=== PATIENT | male | born 1965 | race Caucasian/White ===

== ENCOUNTER 2021-01-19 07:33 | Observation (INO) ==
--- NOTE | 2021-01-02 13:30 | PAT Medication Instructions ---
Medication Instructions Date of Service January 02, 2021 Home Medications aspirin [Aspir-81] 81 mg PO QAM baclofen 10 mg PO BID cholecalciferol (vitamin D3) [Vitamin D3] 125 mcg PO QAM diclofenac sodium 50 mg PO BID metformin 500 mg PO BID multivitamin 1 tab PO QAM omega 4-bki-osi-fish oil [[place] 3 Fish Oil] 1 cap PO QAM ASK your surgeon for instructions diclofenac sodium 50 mg PO BID ASK your prescriber and surgeon aspirin [Aspir-81] 81 mg PO QAM STOP taking 2 weeks before surgery (or as soon as possible if surgery is within 2 weeks) omega 5-dvf-hdi-fish oil [[place] 3 Fish Oil] 1 cap PO QAM DO NOT take the morning of surgery baclofen 10 mg PO BID cholecalciferol (vitamin D3) [Vitamin D3] 125 mcg PO QAM metformin 500 mg PO BID multivitamin 1 tab PO QAM Take evening before surgery baclofen 10 mg PO BID metformin 500 mg PO BID Other Notes If you have any questions please call us at [phone] or [phone] or [phone] or [phone]
--- NOTE | 2021-01-03 12:07 | Anesthesiology Consultation ---
Date of Service January 03, 2021 Assessment & Plan (1) Encounter for pre-operative examination: - Per assessment on 01/03: Travel screen negative. No known COVID-19 positive contacts or current COVID-19 related symptoms. Surgeon arranging preop COVID testing (scheduled 01/10; [facility]). Awaiting results. - Check BSG AM DOS - ASA instructions per surgeon/prescriber Chart Review Chart Review: Acceptable Risk for Surgery and Patient seen in Pre Admission Testing Teaching & Discussion Pre-Anesthesia Teaching/Discussion Notes: Instructed NPO after midnight before surgery,except medications with 15 cc of water. Medication instructions provided according to the PAT guidelines. History Surgery Operation Date: 01/17/21 12:05 Proposed Procedures p C5-C7 Anterior Cervical Discectomy and Fusion, C6 Corpectomy, Spinal Cord Monitoring - Jordin Banda DO Height/Weight Height: 6 ft 4 in Weight: 110.3 kg Allergies Allergy/AdvReac Type Severity Reaction Status Date / Time No Known Allergies Allergy Verified 12/26/20 09:48 Medications Home Medications Medication Instructions Recorded Confirmed Last Taken aspirin [Aspir-81] 81 mg PO QAM 12/26/20 12/26/20 Unknown baclofen 10 mg PO BID 12/26/20 12/26/20 Unknown cholecalciferol (vitamin D3) 125 mcg PO QAM 12/26/20 12/26/20 Unknown [Vitamin D3] diclofenac sodium 50 mg PO BID 12/26/20 12/26/20 Unknown metformin 500 mg PO BID 12/26/20 12/26/20 Unknown multivitamin 1 tab PO QAM 12/26/20 12/26/20 Unknown omega 6-hzz-bvx-fish oil [[place] 3 1 cap PO QAM 12/26/20 12/26/20 Unknown Fish Oil] Past Medical History Medical History Arthritis Chronic back pain Neck > B/L shoulder, LUE radiation Diabetes mellitus, type 2 NIDDM Migraine hx Exercise / Class Metabolic Activity II 4-5 Yardwork/Stairs/Walk up hill Past Family History Family History Grandfather (Paternal) Family history of diabetes mellitus Past Surgical History Surgical History History of arthroscopy Left knee meniscus repair/mc's cyst History of arthroscopy Right knee meniscus repair History of colonoscopy Past Anesthesia History No Hx of Anesthesia Complications and No Family Hx of Anesthesia Complications History of PONV No Hx of PONV and No Hx of Motion Sickness STOP BANG Total 3 Social History Smoking Status: Current every day smoker tobacco type: cigarettes Smoking cigarettes per day: 15-20 cigs/day x 20+ years Do You Dip or Chew Tobacco: No Hx Alcohol Use: Yes Alcohol type: wine and hard liquor alcohol intake frequency: a few times a month Hx Substance Use: No Review of Systems No snoring. Patient denies chest pain, shortness of breath, dyspnea on exertion, fever, chills, cough, wheezing, palpitations. Physical Exam Vital Signs VITALS BP 136/89 P 83 TEMP 98.4 SP02 95%RA RESP 16 PHYSICAL Significantly decreased cervical extension 2/2 cervicalgia Full TMJ range of motion. TMD 3 finger breaths Mallampati Score 3 Dentition: intact, + 2 crowns (upper front) Lungs: clear throughout to auscultation Cardiac: regular rate and rhythm, no murmurs noted Spine: normal Carotid arteries: negative bruit Extremities: no edema Testing Laboratory Results 01/03/21 12:26 01/03/21 12:26 PT 10.3 Seconds (9.0-12.0) 01/03/21 12:26 INR 1.0 (0.9-1.1) 01/03/21 12:26 APTT 29.3 Seconds (21.0-31.0) 01/03/21 12:26 Urine Color Yellow 01/03/21 12:26 Urine Appearance Clear (Clear) 01/03/21 12:26 Urine pH 5.5 (4.5-7.5) 01/03/21 12:26 Ur Specific [place] 1.016 (1.000-1.030) 01/03/21 12:26 Urine Protein Trace (Negative) H 01/03/21 12:26 Urine Glucose (UA) Negative (Negative) 01/03/21 12:26 Urine Ketones Negative (Negative) 01/03/21 12:26 Urine Nitrite Negative (Negative) 01/03/21 12:26 Ur Leukocyte Esterase 2+ (Negative) H 01/03/21 12:26 Urine WBC (Auto) >30 /hpf (0-5) H 01/03/21 12:26 Urine RBC (Auto) 0-4 /hpf (0-4) 01/03/21 12:26 U Hyaline Cast (Auto) 1-5 /lpf (0-5) 01/03/21 12:26 U Epithel Cells (Auto) 10-20 /lpf (0-5) H 01/03/21 12:26 Urine Bacteria (Auto) 1+ (Negative) H 01/03/21 12:26 Blood Type O Negative 01/03/21 12:26 Antibody Screen NEGATIVE 01/03/21 12:26 Surgeon's office made aware of abnormal UA* Electrocardiogram Date: 01/03/21 Findings: + NSR @ (70) Chest X-Ray Date: 01/03/21 FINDINGS: The heart is normal in size. No pleural effusions. No pneumothorax. The lungs are clear. Faint nodular density at the left lung base is consistent with a nipple shadow. IMPRESSION: No acute process.
--- NOTE | 2021-01-03 13:01 | XRay Report ---
XR chest Pre-admission PA/Lat HISTORY: Preop. COMPARISON: None. FINDINGS: The heart is normal in size. No pleural effusions. No pneumothorax. The lungs are clear. Fa int nodular density at the left lung base is consistent with a nipple shadow. IMPRESSION: No acute process. ACT 112: Negative or not required by law. Electronically signed by: Jimmy Lofton M.D. 01/03/2021 12:59 PM
[2021-01-03 13:46] LABS: Basophils # (auto) 0.02 K/uL (0-0.2); Basophils % (auto) 0.3 %; Eosinophils # (auto) 0.24 K/uL (0-0.5); Eosinophils % (auto) 3.1 %; Hematocrit (blood only) 48.2 % (42-52); Hemoglobin 16.6 g/dL (14.0-18.0); Immature Granulocytes # (auto) 0.01 K/uL (0.00-0.02); Immature Granulocytes % (auto) 0.1 %; Lymphocytes # (auto) 2.32 K/uL (1.2-3.4); Lymphocytes % (auto) 29.7 %; Mean Corpuscular Hemoglobin 31.1 pg (25-34); Mean Corpuscular Hgb Conc 34.4 g/dL (32-36); Mean Corpuscular Volume 90.4 fL (80-100); Mean Platelet Volume 9.4 fL (7.4-10.4); Monocytes # (auto) 0.59 K/uL (0.11-0.59); Monocytes % (auto) 7.6 %; Neutrophils # (auto) 4.63 K/uL (1.4-6.5); Neutrophils % (auto) 59.2 %; Platelet Count 211 K/uL (130-400); RDW Coefficient of Variation 13.3 % (11.5-14.5); RDW Standard Deviation 43.9 fL (36.4-46.3); Red Blood Count 5.33 M/uL (4.7-6.1); White Blood Count 7.81 K/uL (4.8-10.8)
[2021-01-03 14:03] LABS: Partial Thromboplastin Ratio 1.1; Partial Thromboplastin Time 29.3 Seconds (21.0-31.0); Prothrombin Time 10.3 Seconds (9.0-12.0)
[2021-01-03 14:04] LABS: Appearance Urine Clear (Clear); Bacteria Urine Automated 1+ (Negative); Bilirubin Urine Negative (Negative); Blood Urine Negative (Negative); Color Urine Yellow; Glucose Urine UA Negative (Negative); Ketones Urine Negative (Negative); Leukocyte Esterase Urine 2+ (Negative); Nitrite Urine Negative (Negative); Protein Urine Trace (Negative); RBC Urine Automated 0-4 /hpf (0-4); Specific Gravity Urine 1.016 (1.000-1.030); Urobilinogen Urine Negative (Negative); WBC Urine Automated >30 /hpf (0-5); pH Urine 5.5 (4.5-7.5)
[2021-01-03 14:10] LABS: BUN Creatinine Ratio 18.9 (10-20); Calcium 9.3 mg/dl (8.5-10.1); Creatinine Clr Calc Pharmacy 105.4 ml/min; Est GFR (African American) 88.7; Est GFR (Non-African American) 76.5
--- NOTE | 2021-01-03 16:28 | Electrocardiogram Report ---
Test Reason : Blood Pressure : / mmHG Vent. Rate : 070 BPM Atrial Rate : 070 BPM P-R Int : 144 ms QRS Dur : 106 ms QT Int : 394 ms P-R-T Axes : 066 054 075 degrees QTc Int : 425 ms Normal sinus rhythm Normal ECG No previous ECGs available Confirmed by Cole Thomas ([id number]) on 01/03/2021 4:27:57 PM Referred By: Jordin Banda Confirmed By:Cole Thomas
[2021-01-05 07:36] LABS: Estimated Average Glucose 117 mg/dl; Hemoglobin A1C 5.7 % (4.5-5.6)
[~2021-01-19 07:33] MED LIST: ACETAMINOPHEN 500 MG TAB PO SCH; CeleBREX 200 MG CAP PO SCH; GABAPENTIN 900 MG DOSE PO SCH; LR 15ML/HR IV SCH; ceFAZolin 2000MG 2,000 MG/15 ML SYR IV SCH
[2021-01-19] MEDS ORDERED: fentaNYL citrate 100 MCG/2 ML VIAL ONE ×2 (08:28→11:38)
[2021-01-19] MEDS ORDERED: MIDAZOLAM HCL 1 MG/ML 2ML VIAL ONE (08:28)
[2021-01-19 09:03] LABS: Influenza A virus by PCR Negative (Neg); Influenza B virus by PCR Negative (Neg); RSV by PCR Negative (Neg); SARS CoV2 RNA(COVID-19) InHosp NEGATIVE (Negative)
--- NOTE | 2021-01-19 09:14 | History & Physical Bridge Note ---
Date of Service January 19, 2021 History & Physical Bridge Note I have examined the patient, reviewed the History & Physical and in the interval since the performance of the History & Physical I have noted the following changes of clinical significance: no changes noted
[2021-01-19] MEDS ORDERED: BACITRACIN INJ 50,000 UNIT VIAL ONE (09:21)
--- NOTE | 2021-01-19 09:23 | History & Physical Report ---
Date of Service January 19, 2021 Assessment & Plan (1) Herniation of cervical intervertebral disc with radiculopathy: Admission and Anticipated Discharge Date Admission Date: C5-C7 anterior cervical discectomy and fusion, possible C6 corpectomy with globus coalition History of Present Illness Chief Complaint: Neck and arm pain Primary Care Provider: Navi Azul This is a 55-year-old male who presents with chronic persistent neck and arm pain after failing course of nonoperative care is here for surgical invention. Allergies Allergy/AdvReac Type Severity Reaction Status Date / Time No Known Allergies Allergy Verified 01/19/21 08:19 Home Medications Medication Instructions Recorded Confirmed Type aspirin [Aspir-81] 81 mg PO QAM 12/26/20 01/19/21 History baclofen 10 mg PO BID 12/26/20 01/19/21 History cholecalciferol (vitamin D3) 125 mcg PO QAM 12/26/20 01/19/21 History [Vitamin D3] diclofenac sodium 50 mg PO BID 12/26/20 01/19/21 History metformin 500 mg PO BID 12/26/20 01/19/21 History multivitamin 1 tab PO QAM 12/26/20 01/19/21 History omega 0-xpq-wth-fish oil [[place] 3 1 cap PO QAM 12/26/20 01/19/21 History Fish Oil] Past Med/Surg History Medical History Arthritis Chronic back pain Neck > B/L shoulder, LUE radiation Diabetes mellitus, type 2 NIDDM Migraine hx Surgical History History of arthroscopy Left knee meniscus repair/mc's cyst History of arthroscopy Right knee meniscus repair History of colonoscopy Family History Grandfather (Paternal) Family history of diabetes mellitus Social History Smoking Status: Current every day smoker Cigarettes Per Day: 15-20 cigs/day x 20+ years; Second Hand Exposure: Yes (FATHER SMOKED/SPOUSE SMOKES); Do You Dip or Chew Tobacco: No; Hx Alcohol Use: Yes Alcohol type: wine and hard liquor Hx Substance Use: No Preferred Language: Chinese Communication Ability: Effective Field Application Engineer Required: No Beliefs That Will Affect Care: None Current Living Situation: Spouse Other Information That Helps Us Care for You: No Feels Safe at Home: Yes Safety Concerns: Feels Safe At This Time Assistive Devices: Glasses Physical Exam Physical Exam: Patient is alert and oriented Heart regular in rhythm Lungs clear to auscultation Results & Data ([facility]) Vital Signs (Past 12 Hours) Vital Signs Temp Pulse Resp BP Pulse Ox 01/19/21 08:21 37.1 C 84 18 144/98 H 98
[2021-01-19] MEDS ORDERED: HYDROmorphone INJ 2 MG/ML SYR/VIAL IV PRN (09:25)
[2021-01-19] MEDS ORDERED: fentaNYL citrate 100 MCG/2 ML VIAL IV PRN (09:25)
[2021-01-19] MEDS ORDERED: PROMETHAZINE HCL 12.5 MG in SODIUM CHLORIDE 0.9% 50 ML IV PRN ×2 (09:25→13:18)
[2021-01-19] MEDS ORDERED: ONDANSETRON INJ 2 MG/ML 2 ML VIAL IV PRN ×2 (09:25→13:18)
[2021-01-19] MEDS ORDERED: METOCLOPRAMIDE HCL INJ 5 MG/ML 2 ML VIAL IV PRN ×2 (09:25→13:18)
[2021-01-19] MEDS ORDERED: ATROPINE SULFATE 0.1 MG/ML 10ML SYR IV PRN (09:25)
[2021-01-19] MEDS ORDERED: ePHEDrine sulfate 50 MG/ML AMP IV PRN (09:25)
[2021-01-19] MEDS ORDERED: PROPOFOL IV EMULSION 10 MG/ML 20 ML VIAL IV ONE (10:14)
[2021-01-19] MEDS ORDERED: SUCCINYLCHOLINE CHLORIDE 20 MG/ML 10 ML VIAL IV ONE (10:14)
[2021-01-19] MEDS ORDERED: LIDOCAINE HCL 2% 2 ML VIAL/AMP(20MG/ML) INFIL ONE (10:14)
[2021-01-19] MEDS ORDERED: DEXAMETHASONE SOD INJ 4 MG/ML VIAL ONE (10:14)
[2021-01-19] MEDS ORDERED: ROCURONIUM BROMIDE 10 MG/ML 5 ML VIAL IV ONE (10:14)
[2021-01-19] MEDS ORDERED: ONDANSETRON INJ 2 MG/ML 2 ML VIAL ONE (10:14)
[2021-01-19] MEDS ORDERED: GLYCOPYRROLATE 0.2 MG/ML VIAL ONE (10:15)
[2021-01-19] MEDS ORDERED: NEOSTIGMINE METHYLSULFATE 1 MG/ML 10ML VIAL ONE (10:15)
[2021-01-19] MEDS ORDERED: FLOSEAL HEMOSTATIC MATRIX 10ML TOP ONE (10:18)
[2021-01-19] MEDS ORDERED: PHENYLEPHRINE 100MCG/ML 5ML SYR ONE (10:29)
--- NOTE | 2021-01-19 11:40 | Operative Report ---
Post Operative Report Pre & Post Diagnosis Operation Date: 01/17/21 07:45 <No data on this case meets the specified criteria> Operation Date: 01/19/21 09:45 Pre-Op Diagnosis: Cervical spinal stenosis with myeloradiculopathy Post-Op Diagnosis: Same I identified the patient and participated in the time-out.: Yes Procedure Operation Date: 01/17/21 07:45 <No data on this case meets the specified criteria> Operation Date: 01/19/21 09:45 Actual Procedures #1 anterior cervical corpectomy C6 with bilateral foraminotomies. #2 anterior cervical arthrodesis C5-C7. #3 placement of 25 mm peek cage C5-C7. #4 placement locally harvested morselized autograft combined with I factor in the interbody cage. #5 application of 5 complete and screws from C5-C7. Surgeon Jordin Banda, DO Shipping And Receiving Associate Flower Leigh Estimated Blood Loss 25 Findings See Below Patient demonstrated severe posterior bony spurs off of the endplates of C5-6 and C6-C7 requiring removal extensive amount of the bony endplate and vertebral body. This was done in order to adequately decompress the canal and neural foramen. Subsequently elected to perform a complete corpectomy in order to have established solid endplates at either end of the construct and avoid collapse of the vertebral bodies upon the interbody cage. Specimens None Indications This is a 55-year-old male who presents with above-mentioned diagnosis after failing course of nonoperative care is here for the above-mentioned seizure. Description of Procedure Patient was met with identified informed consent obtained. Patient was taken to the operative suite underwent intubation placed in a supine position on the Pedro table with head Manley head waiter/waitress banquet. All bony prominences well-padded eyes inspected to ensure no external pressure placed upon the. This point the anterior cervical spine was prepped and draped in a sterile fashion. The assistance of fluoroscopy identified the C6 vertebral body and a transverse incision was placed on the right anterior aspect of the cervical spinal lines region. Sharp dissection with assistance of bipolar electrocautery performed down to and exposing the anterior cervical spine at C5-6 and C6-C7. Self- retaining retractors placed. I performed a complete discectomy of C5-6 out to the uncovertebral's bilaterally. [place] distracting pins were utilized to assist in visualization. I removed all posterior annular fibers longitudinal ligament and performed bilateral foraminotomies. In order to adequately decompress the foramen in the canal I burred the superior endplate of C6 and to do this extensively accessed the spurs. This did compromise the integrity of the vertebral body. Based on this I then approached the C6-C7 level placed the [place] distractor pins and C7 to distract across the remaining entire C6 vertebral body. A complete discectomy of C6-C7 was then performed to the uncovertebral's bilaterally. Again marked spurring was noted posteriorly and at this region as well and required excess removal of vertebral body. Subsequently removed the entire vertebral body of C6 to complete a corpectomy and completely decompress the canal and neural foramen. The endplates were then burred to subc ortical bleeding bone and a 25 mm peek cage filled locally harvested morselized autograft and I factor tapped in position. In order to stabilize this lengthy construct I elected to place a plate from C5-C7. This was done so with fluoroscopy. The incision was then copiously irrigated explored to ensure no damage to surrounding structures remaining bleeding. 10 round JEREMY drain inserted. Incision was then closed with 2 Vicryl in the fascia 4 Monocryl for final skin closure. Steri-Strip sterile dressings placed. Patient waken taken to PACU stable condition. Please note spinal cord monitoring was utilized at the procedure no changes noted. Lastly Flower Leigh was present at the entire surgery involved the patient positioning complex portions of the surgery and final skin closure. I attest to the content of the Intraoperative Record and any orders documented therein. Any exceptions are noted below.
--- NOTE | 2021-01-19 12:34 | Fluoroscopy Report ---
FL cervical 2-3V HISTORY: 55 years-old Male ACDF C5-C6/ C6-C7 / CORPECTOMY C6 chronic neck pain COMPARISON: None TECHNIQUE: 3 spot fluoroscopic images of the cervical spine were obtained utilizing 12.4 seconds fluo roscopy time FINDINGS: Anterior plate and screw fusion hardware is noted at what appears to be the C5-C6 levels with C6 peri ectomy. The visualized hardware appears intact. Endotracheal tube. Radiopaque surgical sponge project s within the soft tissues anterior to the hardware. IMPRESSION: Fluoroscopic assistance as above. ACT 112: Negative or not required by law. The above report was generated using voice recognition software. It may contain grammatical, syntax o r spelling errors. Electronically signed by: Isauro Joiner M.D. 01/19/2021 12:33 PM
--- NOTE | 2021-01-19 12:49 | Anesthesiology Progress Note ---
Date of Service January 19, 2021 Anesthesia Post Procedure Vital Signs Vital Signs: Temp Pulse Pulse Resp BP Pulse Ox 01/19/21 12:45 36.4 C L 62 12 133/81 96 01/19/21 12:35 36.4 C L 60 12 128/86 97 01/19/21 12:25 60 17 130/83 96 01/19/21 12:15 64 17 132/86 95 01/19/21 12:05 65 16 142/88 H 95 01/19/21 11:55 80 23 143/87 H 93 01/19/21 11:48 36.2 C L 68 16 146/84 H 95 01/19/21 08:21 37.1 C 84 18 144/98 H 98 Pain Intensity Neck: Pain Intensity: 0 Transfer of Care Handoff Completed per policy Notes Mental Status: alert / awake / arousable and participated in evaluation Patient Amnestic to Procedure: Yes Nausea / Vomiting: adequately controlled Pain: adequately controlled Airway Patency, RR, SpO2: stable & adequate BP & HR: stable & adequate Hydration State: stable & adequate Anesthetic Complications: no major complications apparent
[2021-01-19] MEDS ORDERED: DO NOT ADMINISTER PNEUMOCOCCAL VACCINE PRN (13:18)
[2021-01-19] MEDS ORDERED: FAMOTIDINE 20 MG TAB PO PRN (13:18)
[2021-01-19] MEDS ORDERED: MAGNESIUM HYDROXIDE SUSP 30 ML UDC PO PRN (13:18)
[2021-01-19] MEDS ORDERED: dexAMETHasone 8 MG in SYRINGE 0 ML IV PRN (13:18)
[2021-01-19] MEDS ORDERED: NALOXONE HCL 0.4 MG/1 ML VIAL/CARP IV PRN (13:18)
[2021-01-19] MEDS ORDERED: ALUMINUM/MAGNESIUM SUSP 30 ML UDC PO PRN (13:18)
[2021-01-19] MEDS ORDERED: diphenhydrAMINE Capsule 25 MG CAP PO PRN (13:18)
[2021-01-19] MEDS ORDERED: HYDROmorphone INJ 1 MG/ML SYRINGE IV PRN (13:18)
[2021-01-19] MEDS ORDERED: traMADol HCL 50 MG TABLET PO PRN (13:18)
[2021-01-19] MEDS ORDERED: LORazepam 0.5 MG TAB PO PRN (13:18)
[2021-01-19] MEDS ORDERED: LORazepam 0.5 MG/1 ML VIAL IV PRN (13:18)
[2021-01-19] MEDS ORDERED: ACETAMINOPHEN 1,000 MG/100 ML VIAL IV PRN (13:18)
[2021-01-19] MEDS ORDERED: SOD PHOSPHATE/SOD BIPHOSPHATE ENEMA 132 ML BTL PR PRN (13:18)
[2021-01-19] MEDS ORDERED: DO NOT ADMINISTER FLU VACCINE PRN (13:18)
[2021-01-19] MEDS ORDERED: ACETAMINOPHEN 500 MG TAB PO PRN (13:18)
[2021-01-19] MEDS ORDERED: RACEPINEPHRINE 2.25% NEBU SOLN 0.5 ML VIAL INH PRN (13:18)
[2021-01-19] MEDS ORDERED: HYDROmorphone INJ 0.5 MG/0.5 ML SYR IV PRN (13:18)
[2021-01-19] MEDS ORDERED: ONDANSETRON 4 MG OD TAB PO PRN (13:18)
[2021-01-19] MEDS ORDERED: hydrOXYzine HCl 25 MG TAB PO PRN (13:18)
[2021-01-19] MEDS ORDERED: PHARMACY GLYCEMIC MGMT CONSULT PRN (13:29)
[2021-01-19] MEDS ORDERED: GLUCOSE 10 TABS/TUBE PO PRN (13:30)
[2021-01-19] MEDS ORDERED: GLUCAGON FOR INJ 1 MG VIAL IM PRN (13:30)
[2021-01-19] MEDS ORDERED: CARBOHYDRATES FOR HYPOGLYCEMIA PO PRN (13:30)
[2021-01-19] MEDS ORDERED: DEXTROSE 50% 50 ML SYRINGE IV PRN (13:30)
[2021-01-19] MEDS ORDERED: GLUCOSE 40% GEL 15 GM TUBE PO PRN (13:30)
--- NOTE | 2021-01-19 13:52 | Hospitalist Consultation ---
Date of Consultation January 19, 2021 Assessment & Plan (1) Herniation of cervical intervertebral disc with radiculopathy: (2) H/O cervical spine surgery: - Pain management, bowel regimen and DVT ppx per the primary team - Resume home aspirin 81 mg, 01/20 - PT/OT consults, pt is planning on outpatient therapy - Follow am CBC to monitor for acute blood loss - Giving NSS 150 ml/hr x 1 day (3) Diabetes mellitus, type 2: -Glycemic pharmacy already consulted per primary team -Continue NovoLog sliding scale Accu-Cheks ACHS -Last A1c on 01/03/2021 of 5.7 -Holding metformin (4) Migraine: -History of such, baclofen 10 mg p.o. twice daily (5) Arthritis: -Continue MVI, omega-3 fish oil, vitamin D3 -Holding diclofenac Gi ppx: famotidine 20 mg Q12H prn DVT ppx: - teds, scds, no chemical ppx s/p spinal surgery, ok to resume asa 81 mg tomorrow CODE: Full code Dispo: From home, likely to remain in the hospital x 1-2 days Thank you for involving us in the care of Mr. Gordillo. Please do not hesitate to call with questions or concerns. At this time medicine service will follow along. Supervising Physician Co-Signing Physician Notes Patient is a 55-year-old male with history of diabetes mellitus and other medical problems was seen and examined postop after having anterior cervical surgery for cervical spinal stenosis with myeloradiculopathy. States that his numbness and tingling of his fingers improved post surgery. Patient is doing well postop. He admits to having tongue swelling which improved. He denies any difficulty swallowing, shortness of breath, chest pain, dizziness, nausea, abdominal pain. His pain at surgical site is controlled. Offers no other complaints currently. On exam patient is moderately built and nourished, no apparent distress, normocephalic atraumatic, Neck: Surgical site in dressing,+ Drain, lungs are clear to auscultation, normal breath sounds, S1-S2, no murmur, no pedal edema, abdomen soft, nontender, normal bowel sounds, alert, awake, oriented, grossly no focal neurologic deficits. Patient is consulted for postop medical management. S/P cervical surgery for myeloradiculopathy. Wound care, activity, DVT prophylaxis as per primary team. Continue bowel regimen to prevent constipation. Pain is controlled. Continue incentive spirometry. Monitor CBC daily. Tongue swelling likely secondary to tongue bite. Can use Benadryl, Pepcid as needed, Already on steroids if concern for angioedema--less likely. DM II: Agree with holding p.o. medications and utilizing insulin therapy while hospitalized for management of diabetes mellitus. Expect elevated blood glucose levels given steroid use for cervical surgery. I personally reviewed the record. Patient is interviewed and examined at bedside. Patient's care is coordinated with Cesar Palmer PA-C. Please refer to the documentation above for details of patient's presentation and for discussion of other issues. History of Present Illness Reason for Consultation: Medical management Requesting Physician: Dr. Banda Attending Physician: Jordin Banda, DO History of Present Illness This is a 55 yo M with PMHx of arthritis, DM II, migraine, and chronic back pain who underwent cervical corpectomy C6 with bilateral foraminotomies, cage plac ement from C5-C7 by Dr. Banda on 01/19/21. Pt is doing well today. Reports that he was able to tolerate lunch without much difficulty, feels that his tongue was swollen right after surgery but that that is improving, no difficulty with swallowing, no food getting stuck, no pain. Patient is sitting upright denies any acute back pain. His last bowel movement was yesterday around noon. Patient has not yet ambulated status post surgery. He lives at home with his and anticipates doing physical therapy in his home as he is already been given a list of exercises to perform daily by PT/OT. Allergies Allergy/AdvReac Type Severity Reaction Status Date / Time No Known Allergies Allergy Verified 01/19/21 08:19 Home Medications Medication Instructions Recorded Confirmed Type aspirin [Aspir-81] 81 mg PO QAM 12/26/20 01/19/21 History baclofen 10 mg PO BID 12/26/20 01/19/21 History cholecalciferol (vitamin D3) 125 mcg PO QAM 12/26/20 01/19/21 History [Vitamin D3] diclofenac sodium 50 mg PO BID 12/26/20 01/19/21 History metformin 500 mg PO BID 12/26/20 01/19/21 History multivitamin 1 tab PO QAM 12/26/20 01/19/21 History omega 3-gcu-smh-fish oil [[place] 3 1 cap PO QAM 12/26/20 01/19/21 History Fish Oil] oxycodone 5 mg PO Q6H PRN #20 tab 01/19/21 Rx tramadol 50 mg PO Q6H PRN #20 tab 01/19/21 Rx Patient History Medical History (Updated 01/19/21 @ 13:42 by Estela Guerrero PA-C) Arthritis Chronic back pain Neck > B/L shoulder, LUE radiation Diabetes mellitus, type 2 NIDDM Migraine hx Surgical History (Updated 01/19/21 @ 13:42 by Estela Guerrero PA-C) History of arthroscopy Left knee meniscus repair/mc's cyst History of arthroscopy Right knee meniscus repair History of colonoscopy Family History Grandfather (Paternal) Family history of diabetes mellitus Social History Smoking Status: Current every day smoker Cigarettes Per Day: 15-20 cigs/day x 20+ years; Second Hand Exposure: Yes (FATHER SMOKED/SPOUSE SMOKES); Do You Dip or Chew Tobacco: No; Hx Alcohol Use: Yes Alcohol type: wine and hard liquor Hx Substance Use: No Preferred Language: Greenlandic Communication Ability: Effective Cath Lab Radiological Technologist Required: No Beliefs That Will Affect Care: None Current Living Situation: Spouse Other Information That Helps Us Care for You: No Feels Safe at Home: Yes Safety Concerns: Feels Safe At This Time Assistive Devices: Glasses Review of Systems Review of Systems: Constitutional: No fever, sweats or chills Eyes: No diplopia, no worsening or blurred vision ENT: normal hearing, no trouble swallowing, tongue feels swollen Neck: no pain Respiratory: No cough, sputum, dyspnea at rest or on exertion Cardiovascular: No chest pain, tightness or palpitations Abdomen: No pain, nausea, vomiting, diarrhea or constipation Musculoskeletal: No joint pain, calf pain, swelling Neurologic: No weakness, numbness/tingling, or balance problems Psychiatric: No anxiety or depression Skin: No rash or itch Physical Exam Physical Exam: General: awake, alert, no apparent distress, sitting upright in bed Head: Normocephalic, atraumatic ENT: PERRL, EOMI, no pharyngeal exudate, mucous membranes moist, tongue is slightly edematous but posterior pharynx able to be visualized without difficulty, no pharyngeal edema. Anterior dressing is saturated with blood, JEREMY drain in place and minimal drainage inside. Chest: Clear to auscultation, on 1L via NC, no adventitious breath sounds Cardiac: Regular rate and rhythm, no murmur, no JVD, normal peripheral pulses, good capillary refill Abdominal: NABS x 4 quadrants, soft, nondistended, nontender to palpation, no rebound or guarding Extremities: Normal inspection, no peripheral edema or erythema, calfs nontender to palpation Psych: Normal mood and affect Neuro: AAO x 3, strength intact bilaterally and rated 5/5, no motor deficits, speech is clear, no peripheral sensory deficits Results & Data Results & Data ([facility]) Vital Signs (Past 12 Hours) Vital Signs Temp Pulse Pulse Resp BP Pulse Ox Pulse Ox 01/19/21 13:05 36.8 C 76 18 125/82 95 95 01/19/21 12:55 36.4 C L 69 10 L 124/87 95 01/19/21 12:45 36.4 C L 62 12 133/81 96 01/19/21 12:35 36.4 C L 60 12 128/86 97 01/19/21 12:25 60 17 130/83 96 01/19/21 12:15 64 17 132/86 95 01/19/21 12:05 65 16 142/88 H 95 01/19/21 11:55 80 23 143/87 H 93 01/19/21 11:48 36.2 C L 68 16 146/84 H 95 01/19/21 08:21 37.1 C 84 18 144/98 H 98
[2021-01-19] MEDS ORDERED: INSULIN GLARGINE SOLOSTAR 100 UNITS/ML 3 ML PEN SC ONE (14:00)
--- NOTE | 2021-01-19 14:01 | Pharmacy Report ---
Pharmacy Glycemic Short Note 2 - Date of Service January 19, 2021 - Glycemic Short BSG Results (Last 24 hours): 01/19/21 01/19/21 01/19/21 08:24 11:53 13:42 POC Glucose 122 H 127 H 130 H OUTPATIENT ANTIDIABETIC REGIMEN: * metformin 500 mg PO BIDM * HbA1c: 5.7% (01/03/21) ASSESSMENT: * FAREED is a 55 year old male POD #0 s/p C5-7 discectomy/fusion * Received 4 mg IV dexamethasone in OR * BSGs today of 122 and 127 mg/dL * Dexamethasone 6 mg IV daily ordered to start tomorrow morning * Will give one-time conservative dose of Lantus postop to help cover hyperglycemic effects of dexamethasone PLAN FOR INPATIENT GLYCEMIC CONTROL: * Hold metformin today, will consider restarting tomorrow morning * Basal insulin * Lantus 15 units SQ x 1 (conservative dose given steroids in setting of normal BSG) * Bolus insulin * NovoLog per scale ACHS or Q6hrs while NPO * Goal Range: Low 110 mg/dL - High 140 mg/dL * Correction Factor: 20 mg/dL/unit * Nutritional / Prandial insulin per carb ratio of 1 unit per 6 grams CHO consumed PLAN FOR DISCHARGE: * HbA1c at goal - continue metformin 500 mg PO BIDM
[2021-01-19] MEDS: SODIUM CHLORIDE 0.9% 1000ML 1,000 ML IV SCH ×2 (14:12→20:42)
[2021-01-19] MEDS: oxyCODONE HCL IR 5 MG TAB (IMMEDIATE RELEASE) PO PRN (15:23)
[2021-01-19] MEDS: INSULIN ASPART 100 UNITS/ML 3 ML PEN SC SCH ×2 (15:25→20:44)
[2021-01-19] MEDS: ceFAZolin 2000MG 2,000 MG/15 ML SYR IV SCH (17:18)
[2021-01-19] MEDS ORDERED: INSULIN ASPART 100 UNITS/ML 3 ML PEN SC ONE (17:45)
[2021-01-19] MEDS: BACLOFEN 10 MG TAB PO SCH (20:41)
[2021-01-19] MEDS ORDERED: DOCUSATE SODIUM/SENNA 50/8.6MG TAB PO SCH (21:00)
[2021-01-19] MEDS ORDERED: COUGH DROP (SUGAR FREE) LOZ 24 LOZ/1 BOX BUCCAL ONE (22:03)
[2021-01-20] MEDS: ceFAZolin 2000MG 2,000 MG/15 ML SYR IV SCH (02:14)
[2021-01-20] MEDS: oxyCODONE HCL IR 5 MG TAB (IMMEDIATE RELEASE) PO PRN (02:18)
[2021-01-20] MEDS: SODIUM CHLORIDE 0.9% 1000ML 1,000 ML IV SCH (04:21)
[2021-01-20] MEDS ORDERED: POLYETHYLENE (MIRALAX) 17 GM PACK PO SCH (06:00)
[2021-01-20 06:33] LABS: Hematocrit (blood only) 44.2 % (42-52); Hemoglobin 15.4 g/dL (14.0-18.0); Mean Corpuscular Hemoglobin 31.2 pg (25-34); Mean Corpuscular Hgb Conc 34.8 g/dL (32-36); Mean Corpuscular Volume 89.5 fL (80-100); Mean Platelet Volume 9.1 fL (7.4-10.4); Platelet Count 249 K/uL (130-400); RDW Coefficient of Variation 13.2 % (11.5-14.5); RDW Standard Deviation 43.5 fL (36.4-46.3); Red Blood Count 4.94 M/uL (4.7-6.1); White Blood Count 12.52 K/uL (4.8-10.8)
[2021-01-20 07:05] LABS: BUN Creatinine Ratio 12.1 (10-20); Calcium 8.7 mg/dl (8.5-10.1); Creatinine Clr Calc Pharmacy 106.1 ml/min; Est GFR (African American) 91.8; Est GFR (Non-African American) 79.2; Magnesium 2.2 mg/dl (1.8-2.4); Potassium 3.9 mmol/L (3.5-5.1)
[2021-01-20] MEDS: BACLOFEN 10 MG TAB PO SCH (08:33)
[2021-01-20] MEDS: INSULIN ASPART 100 UNITS/ML 3 ML PEN SC SCH (08:36)
--- NOTE | 2021-01-20 08:50 | Discharge Summary ---
Date of Service January 20, 2021 Admission HPI Per Admitting Provider This is a 55-year-old male who presents with chronic persistent neck and arm pain after failing course of nonoperative care is here for surgical invention. Discharge Data Consultations 01/19/21 13:18 Consult Hospitalist Routine Procedures Performed Operation Date: 01/17/21 07:45 <No data on this case meets the specified criteria> Operation Date: 01/19/21 09:45 Actual Procedures p C5-C7 Anterior Cervical Discectomy and Fusion, C6 Corpectomy, Spinal Cord Monitoring(Not Applicable) - Jordin Banda, [facility] (1) Herniation of cervical intervertebral disc with radiculopathy: Patient is a pleasant 55-year-old male with history physical examination radiographic images consistent with cervical stenosis and cord compression. This reason is brought to the operating room and underwent a C6 corpectomy and fusion from C5-C7. This performed by Dr. Banda under general anesthesia. Left the operating room the JEREMY drain in place. He was transferred to PACU in stable condition and transferred to the orthopedic floor. On the floor he noted his tongue was swollen and bruised. He is tolerating p.o. and is swallowing easily. And today he was deemed safe for home discharge. His drain will be discontinued and dressing change before discharge. He is to change dressing once daily till is dry once is dry he may begin showering. He should not drive until we see him in follow-up. He should not do anything heavier than 7 to 10 pounds. We will see him back in the office in approximately 2 weeks or sooner if he develops any increased pain increased swelling or fevers or chills.
[2021-01-20] MEDS ORDERED: CHOLECALCIFEROL 1,000 UNITS 25 MCG TAB PO SCH (09:00)
[2021-01-20] MEDS ORDERED: INSULIN GLARGINE SOLOSTAR 100 UNITS/ML 3 ML PEN SC SCH (09:00)
[2021-01-20] MEDS ORDERED: dexAMETHasone 6 MG in SYRINGE 0 ML IV SCH (09:00)
[2021-01-20] MEDS ORDERED: ASPIRIN 81 MG ECTAB PO SCH (09:00)
[2021-01-20] MEDS ORDERED: MULTIVITAMIN TAB PO SCH (09:00)
[2021-01-21] MEDS ORDERED: bisacodyL 10 MG SUPP PR PRN (11:41)
== END 2021-01-20 11:27 | disposition home or self-care (01) ==
LOC: ASU 07:33 → 3E 11:55 → INTOOBSV 11:55